=== PATIENT | female | born 1980 | race African-American/Black ===

== ENCOUNTER 2018-07-31 12:20 | Emergency (ER) | payer OTHER ==
[2018-07-31 12:32] VITALS: BP 147/80; PULSE 86; RESP 20; TEMP 98.2
[2018-07-31] MEDS ORDERED: ACET/COD 300 MG/30 MG STARTER PACK 6 TAB BTL PO STA (12:56)
--- NOTE | 2018-07-31 12:56 | ED ---
Back Pain HPI - General Chief Complaint: Back Pain/Injury Stated Complaint: BACK PAIN Time Seen by Provider: 07/31/18 12:34 Source: patient, RN notes reviewed Mode of arrival: ambulatory Limitations: no limitations - History of Present Illness Initial Comments: 37-year-old female presents emergency Department chief complaint of abdominal pain. Patient states pain started last week or so with a new job. Patient states she is doing constant lifting twisting bending. Patient reports of pain and low back denies any bowel bladder incontinence or retention. Denies any saddle anesthesias. Patient has no pain to restart her legs. She's been taken Tylenol and Motrin along with multiple topical medications with minimal relief. Patient symptoms are better at rest. - Related Data Previous Rx's Medication Instructions Recorded Cyclobenzaprine [Flexeril] 10 mg PO TID PRN #15 tab 07/31/18 Ibuprofen [Motrin] 600 mg PO Q8HR PRN #30 tab 07/31/18 Review of Systems ROS Statement: Those systems with pertinent positive or pertinent negative responses have been documented in the HPI. ROS Other: All systems not noted in ROS Statement are negative. Past Medical History Past Medical History: Asthma, Diabetes Mellitus, Hypertension History of Any Multi-Drug Resistant Organisms: None Reported Past Surgical History: Section, Hernia Repair, Orthopedic Surgery Additional Past Surgical History / Comment(s): acl repair lap band Past Psychological History: No Psychological Hx Reported Smoking Status: Current every day smoker Past Alcohol Use History: None Reported Past Drug Use History: None Reported General Exam Limitations: no limitations General appearance: alert, in no apparent distress Head exam: Present: atraumatic, normocephalic, normal inspection Neck exam: Present: normal inspection, full ROM. Absent: tenderness, meningismus, lymphadenopathy Respiratory exam: Present: normal lung sounds bilaterally. Absent: respiratory distress, wheezes, rales, rhonchi, stridor Cardiovascular Exam: Present: regular rate, normal rhythm, normal heart sounds. Absent: systolic murmur, diastolic murmur, rubs, gallop, clicks GI/Abdominal exam: Present: soft, normal bowel sounds. Absent: distended, tenderness, guarding, rebound, rigid Extremities exam: Present: other (Lower extremity strength equal bilaterally, neurovascular intact) Back exam: Present: full ROM (With mild discomfort), tenderness, muscle spasm, paraspinal tenderness. Absent: CVA tenderness (R), CVA tenderness (L), vertebral tenderness Neurological exam: Present: alert, oriented X3, CN II-XII intact, reflexes normal. Absent: motor sensory deficit Course Vital Signs 07/31/18 12:28 Temperature 98.2 F Pulse Rate 86 Respiratory 20 Rate Blood Pressure 147/80 O2 Sat by Pulse 98 Oximetry Medical Decision Making - Medical Decision Making 37-year-old female presented for low back pain. Patient's symptoms are consistent with lumbar strain secondary to new job. She has no red flag symptoms. Patient noted dramatic injury. Patient will be discharged at this time with conservative treatment return parameters were discussed. Disposition Clinical Impression: Strain of lumbar region, Lumbar back pain Disposition: HOME SELF-CARE Condition: Stable Instructions (If sedation given, give patient instructions): Acute Low Back Pain (ED) Additional Instructions: Please return to the Emergency Department if symptoms worsen or any other concerns. Prescriptions: Cyclobenzaprine [Flexeril] 10 mg PO TID PRN #15 tab PRN Reason: Muscle Spasm Ibuprofen [Motrin] 600 mg PO Q8HR PRN #30 tab PRN Reason: Pain Is patient prescribed a controlled substance at d/c from ED?: No Referrals: Nonstaff,Physician [Primary Care Provider] - 1-2 days Time of Disposition: 12:56
== END 2018-07-31 13:29 | disposition home or self-care (01) ==
LOC: EC 12:20
DX: S39.012A Strain of muscle, fascia and tendon of lower back, initial encounter (principal); F17.200 Nicotine dependence, unspecified, uncomplicated; X50.9XXA Other and unspecified overexertion or strenuous movements or postures, initial encounter
CPT/HCPCS: 99283

== ENCOUNTER → 2018-09-02 | Outpatient (CLI) | payer OTHER ==
--- NOTE | 2018-09-02 15:13 | XR ---
EXAMINATION TYPE: XR shoulder complete RT DATE OF EXAM: 09/02/2018 COMPARISON: NONE HISTORY: Pain TECHNIQUE: Three views are submitted. FINDINGS: The osseous structures are intact. There is no acute fracture or dislocation. The AC joint is maint ained. IMPRESSION: 1. No acute process.
== END | disposition home or self-care (01) ==
LOC: RADXRMAIN 14:46
PROVIDERS: ATTEND Emergency Medicine
DX: S43.401A Unspecified sprain of right shoulder joint, initial encounter (principal)

== ENCOUNTER 2018-10-03 23:06 | Emergency (ER) | payer OTHER ==
[2018-10-03 23:21] VITALS: RESP 16
--- NOTE | 2018-10-03 23:44 | ED ---
Extremity Problem HPI - General Chief complaint: Extremity Problem,Nontraumatic Stated complaint: R Leg Swelling Time Seen by Provider: 10/03/18 23:44 Source: patient Mode of arrival: ambulatory Limitations: no limitations - History of Present Illness Initial comments: Eunice is a 38-year-old morbidly obese female with history of diabetes who presents to the emergency department today for evaluation of skin color changes and edema of her right lower extremity. Patient reports that over the past month she's noticed that her right lower extremity seems to be dark and discolored. She is also noted edema in her bilateral lower extremity's seems worse in the right lower extremity. Patient reports she does have some neuropathy in that leg and her facial touch but denies any significant pain in the leg. She's not noticed any redness or signs of infection. She denies any associated fevers, chills nausea or vomiting. 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 - Related Data Home Medications Medication Instructions Recorded Confirmed Albuterol Inhaler [Ventolin Hfa 2 puff INHALATION DIRECTED 07/31/18 07/31/18 Inhaler] Atorvastatin [Lipitor] 20 mg PO DAILY 07/31/18 07/31/18 Insulin Aspart (For Pump) [NovoLOG See Protocol INTRATHECA DAILY 07/31/18 (For Pump)] Lisinopril [Zestril] 20 mg PO DAILY 07/31/18 07/31/18 Losartan Potassium [Cozaar] 25 mg PO DAILY 07/31/18 07/31/18 Yoi-Nfcy-Feiex Acid 1 cap PO DAILY 07/31/18 07/31/18 [-U Capsule (formulary)] Semaglutide [Ozempic] 0.25 mg SQ WE 07/31/18 07/31/18 metFORMIN HCL 1,000 mg PO BID 07/31/18 07/31/18 Previous Rx's Medication Instructions Recorded Cyclobenzaprine [Flexeril] 10 mg PO TID PRN #15 tab 07/31/18 Ibuprofen [Motrin] 600 mg PO Q8HR PRN #30 tab 07/31/18 Allergies Allergy/AdvReac Type Severity Reaction Status Date / Time Penicillins Allergy Swelling Verified 10/03/18 23:21 silver Allergy Rash/Hives Verified 10/03/18 23:21 [From Tegaderm AG Mesh] Review of Systems ROS Statement: Those systems with pertinent positive or pertinent negative responses have been documented in the HPI. ROS Other: All systems not noted in ROS Statement are negative. Past Medical History Past Medical History: Asthma, Diabetes Mellitus, Hypertension History of Any Multi-Drug Resistant Organisms: None Reported Past Surgical History: Section, Hernia Repair, Orthopedic Surgery Additional Past Surgical History / Comment(s): acl repair lap band Past Psychological History: No Psychological Hx Reported Smoking Status: Current every day smoker Past Alcohol Use History: None Reported Past Drug Use History: None Reported General Exam - General Exam Comments Initial Comments: Physical Exam GENERAL: Patient is well-developed and well-nourished. Patient is nontoxic and well-hydrated and is in no distress. HENT: Normocephalic, Atraumatic. EYES: PERRL, EOMI PULMONARY: Unlabored respirations. No audible rales rhonchi or wheezing was noted. CARDIOVASCULAR: There is a regular rate and rhythm without any murmurs gallops or rubs. ABDOMEN: Soft and nontender with normal bowel sounds. SKIN: Chronic skin discoloration of the right lower extremity consistent with venous stasis : Deferred NEUROLOGIC: Patient is alert and oriented x3. Moving all extremities spontaneously MUSCULOSKELETAL: Edema of bilateral lower extremities right greater than left PSYCHIATRIC: Normal psychiatric evaluation. Limitations: no limitations Course Vital Signs 10/03/18 23:15 Temperature 97.8 F Pulse Rate 91 Respiratory 16 Rate Blood Pressure 180/89 O2 Sat by Pulse 98 Oximetry Medical Decision Making - Medical Decision Making The patient was seen and evaluated history is obtained from the patient This is a pleasant but morbidly obese 38-year-old female is presenting with e gabino and discoloration of the right lower extremity, on exam there is no signs of infection is no erythema or tenderness to palpation. Skin color changes are more consistent with chronic venous stasis however the patient doesn't have a formal diagnosis of this, ultrasound was ordered to evaluate for any possible underlying DVT. Ultrasound was negative for DVT. Labs were relatively unremarkable aside from hyperglycemia, insulin dose was ordered. Patient is able to another her glucose at home and is comfortable with the plan for discharge at this time. I did advise the patient to continue using her compression stockings follow-up with primary care physician for discussion of prescription compression stockings or wraps and further evaluation. I did stress to the patient the importance of glucose control as well. All questions pertaining care were answered return parameters discussed patient discharged home in stable condition. - Lab Data Result diagrams: 10/03/18 23:50 10/03/18 23:50 Lab Results 10/03/18 10/03/18 10/04/18 Range/Units 23:50 23:50 01:11 WBC 5.5 (3.8-10.6) k/uL RBC 4.59 (3.80-5.40) m/uL Hgb 12.6 (11.4-16.0) gm/dL Hct 40.4 (34.0-46.0) % MCV 88.2 (80.0-100.0) fL MCH 27.4 (25.0-35.0) pg MCHC 31.1 (31.0-37.0) g/dL RDW 13.9 (11.5-15.5) % Plt Count 281 (150-450) k/uL Neutrophils % 38 % Lymphocytes % 49 % Monocytes % 6 % Eosinophils % 4 % Basophils % 1 % Neutrophils # 2.1 (1.3-7.7) k/uL Lymphocytes # 2.7 (1.0-4.8) k/uL Monocytes # 0.3 (0-1.0) k/uL Eosinophils # 0.2 (0-0.7) k/uL Basophils # 0.1 (0-0.2) k/uL Sodium 139 (137-145) mmol/L Potassium 4.3 (3.5-5.1) mmol/L Chloride 103 (98-107) mmol/L Carbon Dioxide 27 (22-30) mmol/L Anion Gap 9 mmol/L BUN 10 (7-17) mg/dL Creatinine 0.57 (0.52-1.04) mg/dL Est GFR (CKD-EPI)AfAm >90 (>60 ml/min/1.73 sqM) Est GFR (CKD-EPI)NonAf >90 (>60 ml/min/1.73 sqM) Glucose 368 H (74-99) mg/dL Calcium 9.4 (8.4-10.2) mg/dL Total Bilirubin 0.4 (0.2-1.3) mg/dL AST 33 (14-36) U/L ALT 41 (9-52) U/L Alkaline Phosphatase 72 (38-126) U/L Total Protein 7.1 (6.3-8.2) g/dL Albumin 4.0 (3.5-5.0) g/dL Urine Color Light Yellow Urine Appearance Clear (Clear) Urine pH 5.5 (5.0-8.0) Ur Specific Fertile 1.032 (1.001-1.035) Urine Protein Negative (Negative) Urine Glucose (UA) 4+ H (Negative) Urine Ketones Negative (Negative) Urine Blood Negative (Negative) Urine Nitrite Negative (Negative) Urine Bilirubin Negative (Negative) Urine Urobilinogen <2.0 (<2.0) mg/dL Ur Leukocyte Esterase Negative (Negative) Disposition Clinical Impression: Venous stasis, Lymphedema, Poorly controlled diabetes mellitus, Morbid obesity Disposition: HOME SELF-CARE Condition: Stable Is patient prescribed a controlled substance at d/c from ED?: No Referrals: Nonstaff,Physician [Primary Care Provider] - 1-2 days
[2018-10-04 00:30] LABS: Basophils # (A) 0.1 k/uL (0-0.2); Basophils % (A) 1 %; Eosinophils # (A) 0.2 k/uL (0-0.7); Eosinophils % (A) 4 %; HCT 40.4 % (34.0-46.0); HGB 12.6 gm/dL (11.4-16.0); Lymphocytes # (A) 2.7 k/uL (1.0-4.8); Lymphocytes % (A) 49 %; MCH 27.4 pg (25.0-35.0); MCHC 31.1 g/dL (31.0-37.0); MCV 88.2 fL (80.0-100.0); Mean Platelet Volume 8.3; Monocytes # (A) 0.3 k/uL (0-1.0); Monocytes % (A) 6 %; Neutrophils # (A) 2.1 k/uL (1.3-7.7); Neutrophils % (A) 38 %; Platelet Count 281 k/uL (150-450); RBC 4.59 m/uL (3.80-5.40); RDW 13.9 % (11.5-15.5); WBC 5.5 k/uL (3.8-10.6)
[2018-10-04 00:39] LABS: ALT 41 U/L (9-52); AST 33 U/L (14-36); Alkaline Phosphatase 72 U/L (38-126); Anion Gap 9 mmol/L; Blood Urea Nitrogen 10 mg/dL (7-17); Calcium 9.4 mg/dL (8.4-10.2); Carbon Dioxide 27 mmol/L (22-30); Chloride 103 mmol/L (98-107); Glucose 368 mg/dL (74-99); Potassium 4.3 mmol/L (3.5-5.1); Sodium 139 mmol/L (137-145); Total Bilirubin 0.4 mg/dL (0.2-1.3); Total Protein 7.1 g/dL (6.3-8.2)
[2018-10-04 01:19] LABS: Appearance,Urine Clear (Clear); Bilirubin,Urine Negative (Negative); Blood,Urine Negative (Negative); Color,Urine Light Yellow; Glucose,Urine (UA) 4+ (Negative); Ketones,Urine Negative (Negative); Leukocyte Esterase,Urine Negative (Negative); Nitrite,Urine Negative (Negative); PH, Urine 5.5 (5.0-8.0); Protein,Urine Negative (Negative); Specific Gravity,Urine 1.032 (1.001-1.035); Urobilinogen,Urine <2.0 mg/dL (<2.0)
--- NOTE | 2018-10-04 02:00 | US ---
EXAM: US Duplex Right Lower Extremity Veins CLINICAL HISTORY: Pain, edema, discoloration right lower leg for 2 months TECHNIQUE: Real-time duplex ultrasound scan of the right lower extremity veins integrating B-mode two-dimensional vascular structure, Doppler spectral analysis, color flow Doppler imaging and compression. COMPARISON: No relevant prior studies available. FINDINGS: Limitations: Body habitus Deep veins: Unremarkable. Normal compression and normal response to augmentation. Superficial veins: Unremarkable as visualized. Soft tissues: No acute findings. IMPRESSION: No evidence of deep venous thrombosis in the right lower extremity.
[2018-10-04] MEDS ORDERED: INSULIN REGULAR 100 UNIT/ML VIAL SQ ONE (02:04)
[2018-10-04 02:31] VITALS: BP 158/105; PULSE 84; TEMP 98.1
== END 2018-10-04 02:30 | disposition home or self-care (01) ==
LOC: EC 23:06
DX: I89.0 Lymphedema, not elsewhere classified (principal); I87.8 Other specified disorders of veins; E11.65 Type 2 diabetes mellitus with hyperglycemia; E66.01 Morbid (severe) obesity due to excess calories; J45.909 Unspecified asthma, uncomplicated; I10 Essential (primary) hypertension; F17.200 Nicotine dependence, unspecified, uncomplicated; Z68.43 Body mass index [BMI] 50.0-59.9, adult; Z79.4 Long term (current) use of insulin; Z79.899 Other long term (current) drug therapy; Z88.0 Allergy status to penicillin; Z91.048 Other nonmedicinal substance allergy status
CPT/HCPCS: 36415; 80053; 81003; 85025; 99284

== ENCOUNTER 2020-09-02 19:18 | Emergency (ER) | payer OTHER ==
[2020-09-02] MEDS ORDERED: SODIUM CHLORIDE 0.9% 1,000 ML IV STA (21:00)
[2020-09-02] MEDS ORDERED: ACETAMINOPHEN TAB 500 MG TAB PO STA (21:00)
[2020-09-02] MEDS ORDERED: IBUPROFEN 600 MG TAB PO STA (21:00)
--- NOTE | 2020-09-02 21:49 | XR ---
EXAMINATION TYPE: XR chest 1V DATE OF EXAM: 09/02/2020 COMPARISON: None INDICATION: Cough, COVID TECHNIQUE: Single frontal view of the chest is obtained. FINDINGS: The heart size is mildly prominent. The pulmonary vasculature is normal. Subtle mild infiltrate may be present. This is nonspecific. IMPRESSION: 1. Cardiomegaly. 2. Mild nonspecific infiltrate predominantly at the bases. Atypical pneumonia could be considered.
[2020-09-02] MEDS ORDERED: BAMLANIVIMAB (EUA) 700 MG, ETESEVIMAB (EUA) 1,400 MG in SODIUM CHLORIDE 0.9% 50 ML IVPB ONE (22:00)
[2020-09-02 22:11] VITALS: RESP 18
--- NOTE | 2020-09-02 22:15 | ED ---
General Adult HPI - General Chief complaint: Upper Respiratory Infection Stated complaint: SOB/body aches Time Seen by Provider: 09/02/20 20:54 Source: patient Mode of arrival: wheelchair Limitations: no limitations - History of Present Illness Initial comments: 40-year-old female patient presents to the emergency department today for evaluation of shortness of breath, cough, body aches, fever. States that she believes she may have COVID-19. Symptoms have been present for the last 2 days. She is a past medical history of diabetes, hypertension, and obesity. Denies taking any medications for her symptoms. States she has nausea but denies any vomiting or diarrhea. Denies any rash. Has lost taste. Patient denies any recent rash, chest pain, abdominal pain, constipation, back pain, numbness, tingling, dizziness, weakness, hematuria, dysuria, urinary urgency, urinary frequency, headache, visual changes, or any other complaints. - Related Data Home Medications Medication Instructions Recorded Confirmed Albuterol Inhaler (Mhu) [Ventolin 2 puff INHALATION DIRECTED 07/31/18 07/31/18 Hfa Inhaler (Mhu)] Atorvastatin [Lipitor] 20 mg PO DAILY 07/31/18 07/31/18 Insulin Aspart (For Pump) [NovoLOG See Protocol INTRATHECA DAILY 07/31/18 07/31/18 (For Pump)] Losartan Potassium [Cozaar] 25 mg PO DAILY 07/31/18 07/31/18 Xoa-Obmc-Gepjh Acid 1 cap PO DAILY 07/31/18 07/31/18 [-U Capsule (formulary)] Semaglutide [Ozempic] 0.25 mg SQ WE 07/31/18 07/31/18 lisinopriL [Zestril] 20 mg PO DAILY 07/31/18 07/31/18 metFORMIN HCL 1,000 mg PO BID 07/31/18 07/31/18 Previous Rx's Medication Instructions Recorded Cyclobenzaprine [Flexeril] 10 mg PO TID PRN #15 tab 07/31/18 Ibuprofen [Motrin] 600 mg PO Q8HR PRN #30 tab 07/31/18 Allergies Allergy/AdvReac Type Severity Reaction Status Date / Time Penicillins Allergy Swelling Verified 09/02/20 19:50 silver Allergy Rash/Hives Verified 04/09/21 19:50 [From Tegaderm AG Mesh] Review of Systems ROS Statement: Those systems with pertinent positive or pertinent negative responses have been documented in the HPI. ROS Other: All systems not noted in ROS Statement are negative. Past Medical History Past Medical History: Asthma, Diabetes Mellitus, Hypertension History of Any Multi-Drug Resistant Organisms: None Reported Past Surgical History: Section, Hernia Repair, Orthopedic Surgery Additional Past Surgical History / Comment(s): acl repair lap band Past Psychological History: No Psychological Hx Reported Smoking Status: Never smoker Past Alcohol Use History: None Reported Past Drug Use History: None Reported General Exam Limitations: no limitations General appearance: alert, in no apparent distress, other (This is a well- developed, well-nourished adult female patient in no acute distress. Vital signs upon presentation are temperature 103.0F, pulse 118, respirations 24, bl ood pressure 124/75, pulse ox 93% on room air.) Eye exam: Present: normal appearance, PERRL, EOMI. Absent: scleral icterus, conjunctival injection, periorbital swelling ENT exam: Present: normal exam, normal oropharynx, mucous membranes moist Respiratory exam: Present: normal lung sounds bilaterally, other (Tachypnea). Absent: respiratory distress, wheezes, rales, rhonchi, stridor Cardiovascular Exam: Present: regular rate, normal rhythm, normal heart sounds. Absent: systolic murmur, diastolic murmur, rubs, gallop, clicks GI/Abdominal exam: Present: soft, normal bowel sounds. Absent: distended, tenderness, guarding, rebound, rigid Neurological exam: Present: alert, oriented X3, CN II-XII intact Psychiatric exam: Present: normal affect, normal mood Skin exam: Present: warm, dry, intact, normal color. Absent: rash Course Vital Signs 09/02/20 09/02/20 09/02/20 19:46 21:28 22:10 Temperature 103.0 F H 102.7 F H Pulse Rate 118 H 109 H Respiratory 24 26 H 18 Rate Blood Pressure 124/75 118/79 O2 Sat by Pulse 93 L 95 Oximetry 09/02/20 23:39 Temperature 98.8 F Pulse Rate 93 Respiratory 18 Rate Blood Pressure 119/72 O2 Sat by Pulse 94 L Oximetry Medical Decision Making - Medical Decision Making 40-year-old female patient presents to the emergency department today for evaluation of cough, shortness of breath, and fever. Physical examination revealed clear lung sounds. She was tachypneic. She did test positive for COVID-19. She had oxygen saturation between 94-95% on arrival. Chest x-ray did show bilateral basilar infiltrates. She does meet criteria to receive bamlanivimab due to her BMI and diagnosis of diabetes. We did discuss receiving this medication including risks and benefits. She did agree to receive the medication, it was infused, she had no adverse reactions during her hour monitoring.. To be discharged follow-up with primary care physician for recheck in 1-2 days. Urged to continue using her inhaler at home. Return parameters were discussed in detail. She verbalizes understanding and agrees with this plan. Case discussed my attending Dr. Crowell. - Lab Data Lab Results 09/02/20 Range/Units 20:00 Coronavirus (PCR) Detected A (Not Detectd) - Radiology Data Radiology results: report reviewed, image reviewed One view x-ray of the chest is obtained. Report was reviewed in its entirety. Impression by Dr. Minaya shows cardiomegaly. Mild nonspecific infiltrate predominantly at the bases. Atypical pneumonia could be considered. Disposition Clinical Impression: Pneumonia due to COVID-19 virus Disposition: HOME SELF-CARE Condition: Good Instructions (If sedation given, give patient instructions): Coronavirus Disease 2019 (COVID-19) Additional Instructions: Continue using inhaler. Alternate Tylenol and Motrin for fever control. Increase fluids. Follow-up with your primary care physician for recheck in 1-2 days. Return to the emergency department for any new, worsening, or concerning symptoms. Is patient prescribed a controlled substance at d/c from ED?: No Referrals: Vaughn Ochoa MD [Primary Care Provider] - 1-2 days Time of Disposition: 23:41
[2020-09-02] MEDS ORDERED: SODIUM CHLORIDE 0.9% 50 ML IVPB ONE (22:30)
[2020-09-03 00:02] VITALS: BP 119/72; PULSE 93; TEMP 98.8
== END 2020-09-03 00:02 | disposition home or self-care (01) ==
LOC: EC 19:18
DX: U07.1 COVID-19 (principal); J12.82 Pneumonia due to coronavirus disease 2019; E11.9 Type 2 diabetes mellitus without complications; I10 Essential (primary) hypertension; J45.909 Unspecified asthma, uncomplicated; E66.9 Obesity, unspecified; Z68.43 Body mass index [BMI] 50.0-59.9, adult; Z79.899 Other long term (current) drug therapy; Z79.4 Long term (current) use of insulin; Z88.0 Allergy status to penicillin; Z91.048 Other nonmedicinal substance allergy status
CPT/HCPCS: 87635; 71045; 99285; 96365; 96361; Q0245

== ENCOUNTER → 2023-10-01 | Outpatient (CLI) | payer OTHER ==
--- NOTE | 2023-10-07 05:47 | MR ---
EXAMINATION TYPE: MR knee LT wo con DATE OF EXAM: 10/01/2023 COMPARISON: NONE HISTORY: Left knee pain S/P slip and fall accident. TECHNIQUE: Multiplanar, multisequence images of the knee is performed without IV contrast. FINDINGS: Slightly suboptimal secondary to large body habitus. MEDIAL MENISCUS: Abnormal increased signal predominantly triangular shaped and horizontal in orientat ion in the posterior horn. Abnormal signal encroaches upon inferior articular surface which appears t runcated on sagittal image 27. LATERAL MENISCUS: Anterior and posterior horns are intact without tear. CRUCIATE LIGAMENTS: The anterior and posterior cruciate ligaments are intact and unremarkable. COLLATERAL LIGAMENTS: The medial collateral ligament and lateral collateral ligament complex are inta ct and unremarkable. EXTENSOR MECHANISM: Visualized quadriceps and patellar tendons are intact. EFFUSION: No significant suprapatellar joint effusion. POPLITEAL CYST: No popliteal/lemos cyst. TRICOMPARTMENT SPACES: Moderate tricompartment joint space loss with mild to moderate tricompartment spurring. CARTILAGE: Cartilaginous loss medial tibial femoral compartment. Chondromalacia patella with thinning of articular cartilage along the posterior patellar pole. BONE MARROW SIGNAL: No focal abnormal marrow signal is appreciated. OTHER: Mild subcutaneous edema in the anterior soft tissue. IMPRESSION: 1. Fairly moderate tricompartment degenerative changes quite prominent for patient's chronologic age are present as detailed above. 2. At least intrasubstance suspected full-thickness tear posterior horn of the medial meniscus.
== END | disposition home or self-care (01) ==
LOC: RADMRIMAIN 07:41
PROVIDERS: ATTEND Family Medicine
DX: M17.12 Unilateral primary osteoarthritis, left knee (principal); S83.242A Other tear of medial meniscus, current injury, left knee, initial encounter; S80.02XA Contusion of left knee, initial encounter

== ENCOUNTER 2024-10-06 15:17 | Inpatient (IN) | payer OTHER ==
--- NOTE | 2024-10-06 15:57 | ED ---
Chest Pain HPI - General Chief Complaint: Shortness of Breath Stated Complaint: Dizziness Time Seen by Provider: 10/06/24 15:33 Source: patient, RN notes reviewed, old records reviewed Mode of arrival: ambulatory Limitations: no limitations - History of Present Illness Initial Comments: This is a 44-year-old female presenting for severe shortness of breath tachycardia fevers. Patient has recent surgery about 3 to 4 months ago, but has been in good postoperative course. Patient went to work out today and noticed her heart rate to be extremely elevated with shortness of breath went to urgent care center to the ER for elevated heart rate MD Complaint: chest pain, other (Shortness of breath fever) Onset: during rest, during exertion Pain Location: substernal Pain Radiation: none Severity: severe Severity scale (1-10): 9 Quality: tightness Consistency: constant Improves With: nothing Worsens With: nothing Context: recent illness, recent surgery Anginal Symptoms: dyspnea Other Symptoms: palpitations - Related Data Home Medications Medication Instructions Recorded Confirmed Albuterol Inhaler [Ventolin Hfa 2 puff INHALATION RT-Q6H PRN 07/31/18 10/06/24 Inhaler] Cyanocobalamin (Vitamin B-12) 1,000 mcg PO DAILY 10/06/24 10/06/24 [Vitamin B-12] Ergocalciferol [Vitamin D2 (1250 1,250 mcg PO ENRIQUEZ 10/06/24 10/06/24 Mcg = 04549 Iu)] Ferrous Sulfate [Feosol] 325 mg PO DAILY 10/06/24 10/06/24 Medroxyprogesterone Acetate 150 mg IM Q84D 10/06/24 10/06/24 [Depo-Provera] Multivitamins, Thera [Multivitamin 1 tab PO BID 10/06/24 10/06/24 (formulary)] Pantoprazole [Protonix] 40 mg PO BID 10/06/24 10/06/24 Potassium Otc(Unknown Dose) 1 tab PO WEEKLY 10/06/24 10/06/24 ursodioL [Ursodiol] 250 mg PO BID 10/06/24 10/06/24 Allergies Allergy/AdvReac Type Severity Reaction Status Date / Time Penicillins Allergy Anaphylaxis Verified 10/06/24 19:09 silver Allergy Rash/Hives Verified 10/06/24 19:09 [From Tegaderm AG Mesh] NSAIDS (Non-Steroidal AdvReac Gastric Verified 10/06/24 19:09 Anti-Inflamma bypass patient Review of Systems ROS Statement: Those systems with pertinent positive or pertinent negative responses have been documented in the HPI. ROS Other: All systems not noted in ROS Statement are negative. EKG Findings - EKG Comments: EKG Findings:: EKG is sinus tachycardia 106 CO 137 QRS 86 QTc 391 - EKG Results: EKG: interpreted by NICOLE Past Medical History Past Medical History: Asthma, Diabetes Mellitus, Hypertension History of Any Multi-Drug Resistant Organisms: None Reported Past Surgical History: Section, Hernia Repair, Orthopedic Surgery Additional Past Surgical History / Comment(s): acl repair,lap band revision and gastric bypass 06/2024 Past Psychological History: No Psychological Hx Reported Smoking Status: Never smoker Past Alcohol Use History: None Reported Past Drug Use History: None Reported General Exam Limitations: no limitations General appearance: alert, in no apparent distress, obese Head exam: Present: atraumatic, normocephalic, normal inspection Eye exam: Present: normal appearance, PERRL, EOMI. Absent: scleral icterus, conjunctival injection, periorbital swelling ENT exam: Present: normal exam, mucous membranes moist Neck exam: Present: normal inspection. Absent: tenderness, meningismus, lymphadenopathy Respiratory exam: Present: normal lung sounds bilaterally. Absent: respiratory distress, wheezes, rales, rhonchi, stridor Cardiovascular Exam: Present: regular rate, normal rhythm, normal heart sounds. Absent: systolic murmur, diastolic murmur, rubs, gallop, clicks GI/Abdominal exam: Present: soft, normal bowel sounds. Absent: distended, tenderness, guarding, rebound, rigid Extremities exam: Present: normal inspection, full ROM, normal capillary refill. Absent: tenderness, pedal edema, joint swelling, calf tenderness Back exam: Present: normal inspection Neurological exam: Present: alert, oriented X3, CN II-XII intact Psychiatric exam: Present: normal affect, normal mood Skin exam: Present: warm, dry, intact, normal color. Absent: rash Course Vital Signs 10/06/24 10/06/24 10/06/24 15:18 16:36 16:45 Temperature 99.5 F Pulse Rate 73 110 H 105 H Respiratory 22 Rate Blood Pressure 119/77 O2 Sat by Pulse 100 Oximetry 10/06/24 10/06/24 17:10 19:43 Temperature Pulse Rate 106 H 109 H Respiratory 16 18 Rate Blood Pressure 135/74 139/72 O2 Sat by Pulse 100 97 Oximetry - Reevaluation(s) Reevaluation #1: 10/06/24 21:25 Medical records reviewed Reevaluation #2: 10/06/24 21:25 Patient's symptoms improved Reevaluation #3: 10/06/24 21:25 Patient informed of results questions answered Reevaluation #4: Was pt. sent in by a medical professional or institution (VAZQUEZ Villareal, CHRISTIAN EDUCATION DIRECTOR, urgent care, hospital, or jail...) When possible be specific @ -no Did you speak to anyone other than the patient for history (EMS, parent, family, police, friend...)? What history was obtained from this source @ -no Did you review nursing and triage notes (agree or disagree)? Why? @ -agree Are old charts reviewed (outside hosp., previous admission, EMS record, old EKG, old radiological studies, urgent care reports/EKG's, jail records)? Report findings @ -yes Differential Diagnosis (chest pain, altered mental status, abdominal pain women, abdominal pain men, vaginal bleeding, weakness, fever, dyspnea, syncope, headache, dizziness, GI bleed, back pain, seizure, CVA, palpatations, mental health, musculoskeletal)? @ -prior EKG interpreted by me (3pts min.). @ -yes X-rays interpreted by me (1pt min.). @ -yes negative for acute disease CT interpreted by me (1pt min.). @ -no U/S interpreted by me (1pt. min.). @ -no What testing was considered but not performed or refused? (CT, X-rays, U/S, labs)? Why? @ -none What meds were considered but not given or refused? Why? @ -none Did you discuss the management of the patient with other professionals (professionals i.e. VAZQUEZ Villareal, CHRISTIAN EDUCATION DIRECTOR, lab, RT, psych nurse, social media community manager, crushed stone grader, teacher, fisheries technical officer, pillowcase turner)? Give summary @ -no Was smoking cessation discussed for >3mins.? @ -no Was critical care preformed (if so, how long)? @ -no Were there social determinants of health that impacted care today? How? (Homelessness, low income, unemployed, alcoholism, drug addiction, transportation, low edu. Level, literacy, decrease access to med. care, alf, rehab)? @ -none Was there de-escalation of care discussed even if they declined (Discuss DNR or withdrawal of care, Hospice)? DNR status @ -no What co-morbidities impacted this encounter? (DM, HTN, Smoking, COPD, CAD, Cancer, CVA, ARF, Chemo, Hep., AIDS, mental health diagnosis, sleep apnea, morbid obesity)? @ -none Was patient admitted / discharged? Hospital course, mention meds given and route, prescriptions, significant lab abnormalities, going to OR and other pertinent info. @ - Undiagnosed new problem with uncertain prognosis? @ -no Drug Therapy requiring intensive monitoring for toxicity (Heparin, Nitro, In sulin, Cardizem)? @ -no Were any procedures done? @ -no Diagnosis/symptom? @ - Acute, or Chronic, or Acute on Chronic? @ -Acute Uncomplicated (without systemic symptoms) or Complicated (systemic symptoms)? @ -Complicated Side effects of treatment? @ -no Exacerbation, Progression, or Severe Exacerbation? @ -exacerbation Poses a threat to life or bodily function? How? (Chest pain, [place], [place], pneumonia, PE, COPD, DKA, ARF, appy, cholecystitis, CVA, Diverticulitis, Homicidal, Suicidal, threat to staff... and all critical care pts) @ -yes Reevaluation #5: Differential Dyspnea: Coronary syndrome, arrhythmia, tamponade, asthma, COPD, pulmonary embolism, pneumonia, pneumothorax, pulmonary effusion, anaphylaxis, diabetic ketoacidosis, flailed chest, pulmonary contusion, diaphragmatic rupture, anemia, neuromuscular, this is not meant to be an all-inclusive list. Differential Fever: Pneumonia, viral URI, endocarditis, myocarditis, pericarditis, otitis, sinusitis, peritonsillar Abscess, retropharyngeal Abscess, epiglottitis, peritonitis, appendicitis, Angle cystitis, diverticulitis, hepatitis, colitis, UTI, PID, TOA, pyelonephritis, prostatitis, epididymitis, meningitis, encephalitis, pulmonary embolism, CVA, thyroid storm, pancreatitis, adrenal crisis, cavernous sinus thrombosis, this is not meant to be an all-inclusive list. - Consultations Consultation #1: Spoke with [facility] who agrees to admit this patient Chest Pain MDM - MDM 44 female will be admitted for multifocal pneumonia IV antibiotics breathing treatments as needed Disposition Clinical Impression: Multifocal pneumonia, Fever Disposition: ADMITTED IP TO THIS HOSP Condition: Good Is patient prescribed a controlled substance at d/c from ED?: No Time of Disposition: 17:00
--- NOTE | 2024-10-06 16:14 | XR ---
EXAMINATION TYPE: XR chest 2V DATE OF EXAM: 10/06/2024 3:57 PM COMPARISON: 09/02/2020 CLINICAL INDICATION: Female, 44 years old with history of sob, , TECHNIQUE: PA and lateral views FINDINGS: Heart mildly enlarged. Some type of fine linear density projects horizontally along the left lower ch est and can be correlated clinically, possible external artifact. There is extensive airspace disease throughout the right middle lower lung. No pleural effusion. IMPRESSION: 1. Mild cardiomegaly. 2. Extensive airspace disease right mid and lower lung. Correlate for pneumonia. 3. Fine linear density projecting horizontally across the left lower chest, probably external artifac t. Recommend clinical correlation. [facility], , 10/06/2024 4:12 PM
[2024-10-06] MEDS: SODIUM CHLORIDE 0.9% 1,000 ML IV STA (16:19)
[2024-10-06 16:23] LABS: Basophils # (A) 0.08 10*3/uL (0.00-0.10); Basophils % (A) 0.4 %; HCT 34.9 % (37.2-46.3); HGB 11.6 g/dL (12.0-15.0); Lymphocytes # (A) 1.36 10*3/uL (0.90-5.00); Lymphocytes % (A) 7.3 %; MCH 27.2 pg (27.0-32.0); MCHC 33.2 g/dL (32.0-37.0); MCV 81.7 fL (80.0-97.0); Mean Platelet Volume 10.4 fL (9.5-12.2); Monocytes % (A) 4.8 %; Neutrophils # (A) 16.23 10*3/uL (1.80-7.70); Neutrophils % (A) 87.1 %; Platelet Count 310 10*3/uL (140-440); RBC 4.27 10*6/uL (4.10-5.20); RDW 14.1 % (11.5-14.5); WBC 18.64 10*3/uL (4.50-10.00)
[2024-10-06 16:34] LABS: ALT 20 U/L (4-34); AST 23 U/L (14-36); African American GFR (CKD) >90 (>60 ml/min/1.73 sqM); Albumin 3.6 g/dL (3.5-5.0); Alkaline Phosphatase 52 U/L (38-126); Anion Gap 8 mmol/L; Blood Urea Nitrogen 9 mg/dL (7-17); Calcium 8.9 mg/dL (8.4-10.2); Carbon Dioxide 22 mmol/L (22-30); Chloride 107 mmol/L (98-107); Glucose 173 mg/dL (74-99); Lipase 96 U/L (23-300); Magnesium 1.6 mg/dL (1.6-2.3); Non-African American GFR(CKD) >90 (>60 ml/min/1.73 sqM); Potassium 4.2 mmol/L (3.5-5.1); Sodium 137 mmol/L (137-145); Total Bilirubin 1.1 mg/dL (0.2-1.3); Total Protein 6.7 g/dL (6.3-8.2)
[2024-10-06] MEDS: IPRATROPIUM-ALBUTEROL 3 ML NEB INHALATION STA (16:35)
[2024-10-06 16:37] LABS: Partial Thromboplastin Time 22.1 sec (22.0-30.0); Prothrombin Time 11.2 sec (10.0-12.5)
[2024-10-06 16:43] LABS: NT-Pro-B-Type Natriuretic Pept 161 pg/mL
--- NOTE | 2024-10-06 17:38 | CT ---
EXAMINATION TYPE: CT angio chest CT DLP: 918.2 mGycm, Automated exposure control for dose reduction was used. DATE OF EXAM: 10/06/2024 5:27 PM COMPARISON: Chest radiograph from same day. CLINICAL INDICATION:Female, 44 years old with history of PE; dizziness, pe TECHNIQUE/CONTRAST: CTA scan of the thorax is performed with IV Contrast, patient injected with 100 mL of Isovue 370, pul monary embolism protocol. MIP images are created and reviewed. FINDINGS: Pulmonary Artery: There is no evidence for a central filling defect within the pulmonary vasculature to suggest acute pulmonary embolism. Limited evaluation of the segmental and subsegmental branches se condary to bolus timing. The pulmonary artery is dilated measuring up to 3.3 cm in diameter. Lungs/Pleura: Trace right pleural effusion. Patchy and consolidative opacities throughout the right l nicholas with air bronchograms. Minimal linear atelectasis within the lingula and left lower lobe. No pneu mothorax. Airway: Large airways are patent. Heart: Moderately enlarged.Trace pericardial effusion No significant coronary artery calcifications. Vasculature: No evidence of aortic aneurysm. Mediastinum: No evidence of adenopathy. Musculoskeletal: No acute osseous abnormalities. Mild multilevel degenerative disc disease. Soft Tissues: Unremarkable. Lower neck: No significant findings. Upper Abdomen: Right adrenal gland 2.4 cm lesion with a Hounsfield unit of 56. Left adrenal gland 3.1 lesion with a Hounsfield unit of 30. Postsurgical changes from Florencia-en-Y gastric bypass. IMPRESSION: 1. No evidence of central pulmonary embolism. Limited evaluation of the segmental and subsegmental br anches. 2. Multifocal patchy consolidative opacities throughout the right lung with trace right pleural effus ion. Consistent with multifocal pneumonia. 3. Dilated main pulmonary artery suggesting pulmonary arterial hypertension. 4. Moderate cardiomegaly. 5. Bilateral indeterminate adrenal gland lesions. Recommend further evaluation with outpatient CT abd omen adrenal mass protocol. [facility], , 10/06/2024 5:36 PM
[2024-10-06] MEDS ORDERED: PNEUMONIA PROTOCOL UTILIZED 1 EACH MISC PO PRN (17:57)
--- NOTE | 2024-10-06 18:18 | US ---
EXAMINATION TYPE: US venous doppler duplex LE BI DATE OF EXAM: 10/06/2024 4:45 PM COMPARISON: NONE CLINICAL INDICATION: Female, 44 years old with history of dvt; no hx dvt. not on thinners. no pain. n o swelling. increased d dimer, Pain TECHNIQUE: The lower extremity deep venous system is examined utilizing real time linear array sonog johnathon with graded compression, color doppler sonography, and spectral doppler. SIDE PERFORMED: Bilateral FINDINGS: VESSELS IMAGED: Common Femoral Vein Deep Femoral Vein Greater Saphenous Vein * Femoral Vein Popliteal Vein Small Saphenous Vein * Proximal Calf Veins (* superficial vessels) *slightly limited due to body habitus Right Leg: appears negative for dvt, Color Doppler imaging shows patency of the vessels. Spectral wa veforms are within normal limits. Left Leg: appears negative for dvt , Color Doppler imaging shows patency of the vessels. Spectral wa veforms are within normal limits. IMPRESSION: No ultrasound evidence for deep venous thrombosis. [facility], , 10/06/2024 6:15 PM
[2024-10-06] MEDS: AZITHROMYCIN 500 MG in SODIUM CHLORIDE 0.9% 250 ML IVPB STA (19:46)
[2024-10-06] MEDS: HYDROmorphone 1 MG/ML 1 ML SYRINGE IVP STA (20:29)
[2024-10-07] MEDS: HYDROmorphone 1 MG/ML 1 ML SYRINGE IVP PRN (00:21)
[2024-10-07] MEDS ORDERED: ACETAMINOPHEN TAB 325 MG TAB PO PRN (07:21)
--- NOTE | 2024-10-07 07:21 | XR ---
EXAMINATION TYPE: XR chest 1V portable DATE OF EXAM: 10/07/2024 6:35 AM COMPARISON: Chest radiograph from one day prior. CLINICAL INDICATION: Female, 44 years old with history of pneumonia; [facility] TECHNIQUE: XR chest 1V portable Frontal view of the chest. FINDINGS: Lungs/Pleura: Airspace opacities in the right lung. There is no evidence of pleural effusion, focal c onsolidation, or pneumothorax. Pulmonary vascularity: Unremarkable. Heart/mediastinum: Cardiomediastinal silhouette is unremarkable. Musculoskeletal: No acute osseous pathology. Other findings: None IMPRESSION: Right-sided airspace opacities compatible pneumonia. [facility], , 10/07/2024 7:18 AM
[2024-10-07] MEDS: cefTRIAXone 2 GM in DEXTROSE 5% IN WATER 50 ML IVPB SCH (09:05)
[2024-10-07] MEDS: ONDANSETRON 4 MG/2 ML VIAL IVP PRN (09:14)
[2024-10-07] MEDS: IPRATROPIUM-ALBUTEROL 3 ML NEB INHALATION PRN (10:30)
[2024-10-07] MEDS: AZITHROMYCIN 500 MG in SODIUM CHLORIDE 0.9% 250 ML IVPB SCH (11:13)
[2024-10-07 11:35] LABS: Glucose,Whole Blood 141 mg/dL (70-110)
[2024-10-07 12:07] LABS: Basophils # (A) 0.06 10*3/uL (0.00-0.10); Basophils % (A) 0.4 %; Eosinophils # (A) 0.03 10*3/uL (0.04-0.35); Eosinophils % (A) 0.2 %; HCT 31.3 % (37.2-46.3); HGB 10.3 g/dL (12.0-15.0); Lymphocytes # (A) 1.72 10*3/uL (0.90-5.00); Lymphocytes % (A) 11.4 %; MCH 27.5 pg (27.0-32.0); MCHC 32.9 g/dL (32.0-37.0); MCV 83.7 fL (80.0-97.0); Mean Platelet Volume 11.8 fL (9.5-12.2); Monocytes # (A) 0.64 10*3/uL (0.20-1.00); Monocytes % (A) 4.2 %; Neutrophils # (A) 12.57 10*3/uL (1.80-7.70); Neutrophils % (A) 83.5 %; Platelet Count 279 10*3/uL (140-440); RBC 3.74 10*6/uL (4.10-5.20); RDW 14.6 % (11.5-14.5); WBC 15.07 10*3/uL (4.50-10.00)
[2024-10-07] MEDS: BENZOCAINE/MENTHOL LOZENG 1 EACH LOZENGE MUCOUS MEM PRN (13:16)
[2024-10-07] MEDS: FLUCONAZOLE 100 MG TAB PO SCH (13:16)
[2024-10-07] MEDS: HEPARIN SODIUM,PORCINE 5,000 UNIT/ML 1 ML VIAL SQ SCH (16:43)
[2024-10-07] MEDS: PANTOPRAZOLE 40 MG TABLET PO SCH (20:19)
[2024-10-07] MEDS: URSODIOL 250 MG PO SCH (20:55)
--- NOTE | 2024-10-07 22:23 | P.HPIM ---
History of Present Illness H&P Date: 10/07/24 Chief Complaint: Difficulty in breathing Patient is a 44-year-old female with a known history of hypertension, asthma and history of lap band and gastric bypass in June 2024 presents to ER with complaints of difficulty breathing, fever and substernal chest pain. Patient states that she went to work today and noticed her heart rate is elevated with shortness of breath and went to urgent care facility. She has been having symptoms for the past 2 days. She felt dizzy and was having pleuritic chest pain. Urgent care facility was recommended to her go to ER. On admission blood pressure 119/77 pulse 110 respiration 22 and pulse ox 100% on room air. Chest x-ray showed mild cardiomegaly. Extensive airspace disease in the right remained and lower lung. Correlate for pneumonia. Fine linear density projecting horizontally across the left lower chest probably external artifact. EKG showed sinus tachycardia. CTA chest showed no evidence of central pulmonary embolism. Limited evaluation of the segmental and subsegmental branches. Multifocal patchy consolidative opacities throughout the right lung with trace right pleural effusion. Consistent with multifocal pneumonia. Dilated main pulmonary artery suggesting pulmonary arterial hypertension. Moderate cardiomegaly. Bilateral indeterminate adrenal gland lesions. Recommend further evaluation with outpa tient CT abdomen adrenal mass protocol. Laboratory data showed WBC 18.6 hemoglobin 11.6 and platelets 310, D-dimer 1.35 Sodium 137 potassium 4.2, BUN 9 and creatinine 0.65 blood sugar 173 magnesium 1. 6 proBNP 161 and troponin 0.012 Review of Systems Constitutional: Does have fever and chills. No generalized weakness or weight loss. Abdomen: Patient denied nausea vomiting and diarrhea and abdominal pain. Cardiovascular: Complains of pleuritic chest pain substernally. Positive for short of breath no palpitations. No leg swelling Respiratory: patient denied any cough or sputum production. No shortness of breath Neurologic: Patient denied any numbness or tingling. no headache. Musculoskeletal: Patient denies any complaints of joint swelling or deformity. Skin: Negative Psychiatric: Negative Endocrine: No heat or cold intolerance. No recent weight gain. Genitourinary: No dysuria or hematuria. All other 14 point ROS negative except the above Past Medical History Past Medical History: Asthma, Diabetes Mellitus, Hypertension History of Any Multi-Drug Resistant Organisms: None Reported Past Surgical History: Section, Hernia Repair, Orthopedic Surgery Additional Past Surgical History / Comment(s): acl repair,lap band revision and gastric bypass 06/2024 Past Psychological History: No Psychological Hx Reported Smoking Status: Never smoker Past Alcohol Use History: None Reported Past Drug Use History: None Reported Medications and Allergies Home Medications Medication Instructions Recorded Confirmed Type Albuterol Inhaler [Ventolin Hfa 2 puff INHALATION RT-Q6H PRN 07/31/18 10/06/24 History Inhaler] Cyanocobalamin (Vitamin B-12) 1,000 mcg PO DAILY 10/06/24 10/06/24 History [Vitamin B-12] Ergocalciferol [Vitamin D2 (1250 1,250 mcg PO ENRIQUEZ 10/06/24 10/06/24 History Mcg = 26801 Iu)] Ferrous Sulfate [Iron (65 MG 325 mg PO DAILY 10/06/24 10/06/24 History Elemental)] Medroxyprogesterone Acetate 150 mg IM Q84D 10/06/24 10/06/24 History [Depo-Provera] Multivitamins, Thera [Multivitamin 1 tab PO BID 10/06/24 10/06/24 History (formulary)] Pantoprazole [Protonix] 40 mg PO BID 10/06/24 10/06/24 History Potassium Otc(Unknown Dose) 1 tab PO WEEKLY 10/06/24 10/06/24 History ursodioL [Ursodiol] 250 mg PO BID 10/06/24 10/06/24 History Fluconazole [Diflucan] 100 mg PO DAILY 5 Days #5 tab 10/09/24 Rx cefuroxime axetiL [Ceftin] 500 mg PO BID 4 Days #8 tab 10/09/24 Rx Allergies Allergy/AdvReac Type Severity Reaction Status Date / Time Penicillins Allergy Anaphylaxis Verified 10/06/24 19:09 silver Allergy Rash/Hives Verified 10/06/24 19:09 [From Tegaderm AG Mesh] NSAIDS (Non-Steroidal AdvReac Gastric Verified 10/06/24 19:09 Anti-Inflamma bypass patient Physical Exam Vitals: Vital Signs Temp Pulse Pulse Resp BP BP Pulse Ox 10/07/24 10:44 84 10/07/24 10:30 80 10/07/24 07:22 98.6 F 80 16 158/81 94 L 10/07/24 01:21 98.7 F 68 18 111/68 98 10/06/24 22:14 18 116/76 96 10/06/24 19:43 109 H 18 139/72 97 10/06/24 17:10 106 H 16 135/74 100 10/06/24 16:45 105 H 10/06/24 16:36 110 H 10/06/24 15:18 99.5 F 73 22 119/77 100 Intake and Output 10/06/24 10/07/24 10/07/24 22:59 06:59 14:59 Intake Total 800 Balance 800 Intake: Oral 800 Other: Weight 124.284 kg PHYSICAL EXAMINATION: Patient is lying in the bed,, no acute distress, awake alert and oriented.. HEENT: Normocephalic. Neck is supple. Pupils reactive. Nostrils clear. Oral cavity is moist. Neck reveals no JVD, carotid bruits, or thyromegaly. CHEST EXAMINATION: Trachea is central. Symmetrical expansion. Right basilar diminished sounds. No wheezing or rhonchi. Nonlabored breathing.. CARDIAC: Normal S1, S2 with no gallops. No murmurs ABDOMEN: Soft. Bowel sounds normal. No organomegaly. No abdominal bruits. Extremities: Right lower extremity slightly swollen compared to left no calf tenderness.. No clubbing or cyanosis Neurologically awake, alert, oriented x3 with well-coordinated movements. No focal deficits noted Skin: No rash or skin lesions. Psychiatric: Coperative. Nonsuicidal Musculoskeletal: No joint swelling or deformity. Normal range of motion. Results CBC & Chem 7: 10/09/24 05:03 10/09/24 05:03 Labs: Abnormal Lab Results - Last 24 Hours (Table) 10/06/24 10/06/24 10/06/24 Range/Units 16:20 16:20 16:20 WBC 18.64 H (4.50-10.00) 10*3/uL Hgb 11.6 L (12.0-15.0) g/dL Hct 34.9 L (37.2-46.3) % Immature Gran # 0.07 H (0.00-0.04) 10*3/uL Neutrophils # 16.23 H (1.80-7.70) 10*3/uL Eosinophils # 0.00 L (0.04-0.35) 10*3/uL D-Dimer 1.35 H (<0.60) mg/L FEU Glucose 173 H (74-99) mg/dL Thrombosis Risk Factor Assmnt - DVT/VTE Prophylaxis DVT/VTE Prophylaxis: Pharmacologic Prophylaxis ordered - Choose All That Apply Each Factor Represents 1 point: Age 41-60 years Thrombosis Risk Factor Assessment Total Risk Factor Score: 1 Thrombosis Risk Factor Assessment Level: Low Risk Assessment and Plan Assessment: Right lung multifocal pneumonia with trace right pleural effusion. Sepsis secondary to pneumonia Moderate cardiomegaly and possible pulmonary artery hypertension Bilateral indeterminate adrenal gland lesions. Outpatient CT scan was recommended. discussed with patient Hyperglycemia Asthma History of gastric bypass in 2024 Obesity with BMI 42.9 Cardiomegaly DVT prophylaxis with heparin subcu Plan: Patient will be continued on antibiotics in the form of ceftriaxone and azithromycin. Procalcitonin level and urine Legionella antigen was ordered. Follow-up blood cultures sputum cultures and repeat CBC and BMP tomorrow. DuoNebs as needed. Continue GI and DVT prophylaxis. Follow-up closely. Time with Patient: Greater than 30
[2024-10-08 08:17] LABS: BUN/Creat Ratio 11.17 Ratio (12.00-20.00); Blood Urea Nitrogen 6.7 mg/dL (9.0-27.0); Calcium 8.5 mg/dL (8.7-10.3); Carbon Dioxide 21.7 mmol/L (21.6-31.8); Chloride 106 mmol/L (96-109); Glucose 95 mg/dL (70-110); Potassium 3.7 mmol/L (3.5-5.5); Sodium 136 mmol/L (135-145)
[2024-10-08 08:20] LABS: Basophils # (A) 0.05 X 10*3/uL (0.00-0.10); Basophils % (A) 0.5 %; Eosinophils % (A) 1.9 %; HCT 28.6 % (37.2-46.3); Lymphocytes % (A) 27.9 %; MCH 26.4 pg (27.0-32.0); MCHC 31.5 g/dL (32.0-37.0); MCV 83.9 FL (80.0-97.0); Mean Platelet Volume 12.2 FL (9.5-12.2); Monocytes # (A) 0.68 X 10*3/uL (0.20-1.00); Monocytes % (A) 6.6 %; NRBC Per 100 WBC 0 X 10*3/uL (0.00-0.01); Neutrophils # (A) 6.51 X 10*3/uL (1.80-7.70); Neutrophils % (A) 62.7 %; Platelet Count 260 X 10*3/uL (140-440); RBC 3.41 X 10*6/uL (4.10-5.20); RDW 14.6 % (11.5-14.5); WBC 10.38 X 10*3/uL (4.50-10.00)
[2024-10-08] MEDS: diphenhydrAMINE 25 MG CAP PO PRN (22:50)
[2024-10-09 07:42] VITALS: BP 125/77; RESP 17; TEMP 98.6
[2024-10-09 08:05] LABS: Basophils # (A) 0.05 X 10*3/uL (0.00-0.10); Basophils % (A) 0.8 %; Eosinophils # (A) 0.25 X 10*3/uL (0.04-0.35); Eosinophils % (A) 3.8 %; HCT 31.2 % (37.2-46.3); HGB 9.8 g/dL (12.0-15.0); Lymphocytes # (A) 3.49 X 10*3/uL (0.90-5.00); Lymphocytes % (A) 52.8 %; MCH 26.6 pg (27.0-32.0); MCHC 31.4 g/dL (32.0-37.0); MCV 84.6 FL (80.0-97.0); Mean Platelet Volume 11.7 FL (9.5-12.2); Monocytes # (A) 0.47 X 10*3/uL (0.20-1.00); Monocytes % (A) 7.1 %; NRBC Per 100 WBC 0 X 10*3/uL (0.00-0.01); Neutrophils # (A) 2.34 X 10*3/uL (1.80-7.70); Neutrophils % (A) 35.3 %; Platelet Count 280 X 10*3/uL (140-440); RBC 3.69 X 10*6/uL (4.10-5.20); RDW 14.3 % (11.5-14.5); WBC 6.61 X 10*3/uL (4.50-10.00)
[2024-10-09 08:14] LABS: BUN/Creat Ratio 9.57 Ratio (12.00-20.00); Blood Urea Nitrogen 6.7 mg/dL (9.0-27.0); Calcium 8.7 mg/dL (8.7-10.3); Carbon Dioxide 25.2 mmol/L (21.6-31.8); Chloride 104 mmol/L (96-109); Glucose 106 mg/dL (70-110); Potassium 4.1 mmol/L (3.5-5.5); Sodium 138 mmol/L (135-145)
[2024-10-09 12:34] VITALS: PULSE 87
--- NOTE | 2024-10-09 12:36 | XR ---
EXAMINATION TYPE: XR chest 1V DATE OF EXAM: 10/09/2024 12:22 PM COMPARISON: 10/07/2024 CLINICAL INDICATION: Female, 44 years old with history of Pneumonia; [facility] TECHNIQUE: XR chest 1V Frontal view of the chest. FINDINGS: Lungs/Pleura: Improved aeration of lungs on today's exam with persistent airspace opacities scattered throughout the lungs. No evidence of pneumothorax or large pleural effusion. Pulmonary vascularity: Unremarkable. Heart/mediastinum: Cardiomediastinal silhouette is unremarkable. Musculoskeletal: No acute osseous pathology. Other findings: None Lines/Tubes: IMPRESSION: Slightly improved aeration with persistent multifocal airspace opacities. [facility], , 10/09/2024 12:34 PM
== END 2024-10-09 14:20 | disposition home or self-care (01) | DRG 720 ==
LOC: EC 15:17 → 4SSUR 17:57
PROVIDERS: ADMIT Hospitalist; ATTEND Hospitalist
DX: A41.9 Sepsis, unspecified organism (principal); E11.65 Type 2 diabetes mellitus with hyperglycemia; E66.9 Obesity, unspecified; J18.9 Pneumonia, unspecified organism; I10 Essential (primary) hypertension; J45.909 Unspecified asthma, uncomplicated; Z68.41 Body mass index [BMI] 40.0-44.9, adult; Z79.899 Other long term (current) drug therapy; Z98.84 Bariatric surgery status; I27.21 Secondary pulmonary arterial hypertension; E27.8 Other specified disorders of adrenal gland; Z88.6 Allergy status to analgesic agent; Z88.0 Allergy status to penicillin
CPT/HCPCS: 36415; 71045; 71046; 71275; 80048; 80053; 83036; 83690; 83735; 83880; 84145; 84484; 85025; 85379; 85610; 85730; 87040; 87449; 93005; 93970; 94640; 94760; 96361; 96365; 96366; 96367; 96375; 99285